=== PATIENT | female | born 1965 | race Caucasian/White ===

== ENCOUNTER 2025-06-11 12:54 | Outpatient (REF) | payer OTHER, SELFPAY ==
--- OUTSIDE RECORDS SUMMARY | 2025-06-11 13:06 | XMS_ITS | Clinical Summary ---
Author Organization [facility] Address [address] [place] [address] Care Team Providers Care Diet Supervisor Name Role Phone Desmond Velasquez MD Primary Care Provider + Allergies Active Allergy Reactions Criticality Noted Date Comments Penicillins Other (See Comments) 09/03/2018 Angioedema Medications cyclobenzaprine (FLEXERIL) 10 MG tablet TAKE 1 TABLET BY MOUTH EVERY DAY 06/15/2021 Active carbidopa-levod opa (SINEMET CR) 25-100 mg tablet Sinemet CR 25-100 MG Oral Tablet Extended Release 1 TAB PRN Refills: 0 Active Active Prempro 0.3-1.5 mg tablet 06/19/2021 Active FLUoxetine (PROzac) 40 MG capsule 07/05/2021 Active gabapentin (NEURONTIN) 300 MG capsule Take 300 mg by mouth. Active levothyroxine (SYNTHROID) 100 MCG tablet 06/24/2021 Active lorazepam (ATIVAN) 1 MG tablet Ativan 1 MG Oral Tablet 1 TAB PRN Refills: 0 Active Active methylphenidate HCl (RITALIN) 20 MG tablet 07/11/2021 Active naproxen (NAPROSYN) 500 MG tablet Take 500 mg by mouth 2 (two) times a day as needed. 03/08/2021 Active nitroglycerin (NITROSTAT) 0.[address] 0.3 mg under the tongue. 07/03/2019 Active omeprazole (PriLOSEC) 40 MG capsule PriLOSEC 40 MG CPDR TAKE 1 CAPSULE DAILY. Refills: 0 Active Active oxyCODONE (ROXICODONE) 10 MG tab Take 10 mg by mouth. 07/11/2021 Active prazosin (MINIPRESS) 2 MG capsule 09/01/2021 Active rizatriptan (MAXALT) 10 MG tablet Take 10 mg by mouth. 06/19/2021 Active SUMAtriptan (IMITREX) 100 MG tablet 06/16/2021 Active topiramate (TOPAMAX) 100 MG tablet 07/05/2021 Active topiramate (TOPAMAX) 200 MG tablet 08/07/2021 Active Immunizations Name Administration Dates Next Due Flucelvax Trivalent PFS IM; Without Preservative (18+ mos) 09/03/2018 Fluzone Trivalent Prefilled Syringe (18+ months) 09/05/2021 PPD Test 09/03/2018 Social History Tobacco Use Types Packs/Day Years Used Date Smoking Tobacco: Former Smokeless Tobacco: Never Comments No Sex and Gender Information Value Date Recorded Sex Assigned at Not on file Legal Sex Female 3:35 PM EDT Gender Identity Not on file Sexual Orientation Not on file Plan of Treatment Health Maintenance Due Date Last Done Comments Colorectal Cancer: COLONOSCO PY Screening every 10 yrs (or Modifier) 1966 Depression: Screening Annual ly using PHQ-2/9 in Adults 18 yrs or above (or HM Modifier)([facility]) 02/20/1984 Hepatitis C Virus Infection in Adolescents and Adults: Screening (or Modifier) ([facility]) 02/20/1984 STEFFI Screening: Once using ST [facility]BANG Questionnaire for Adults with Conditions or high BMI([facility]) 02/20/1984 SDOH Screening Reminder: Tarah baca for all adults ([facility]) 02/20/1984 Tobacco Smoking Cessation: i n Adults excluding Women: Behavioral and Pharmacotherapy Interventions ([facility]) 02/20/1984 DTaP/Tdap/Td Vaccines ([facility]) (1 - Tdap) 1985 Cervical Cancer Screenin 1-65 yrs of age (or Modifier) 1987 Cervical Cancer Screening: P ap every 3 yrs pts age 21-65 1987 Cervical Cancer: Pap Screeni ng with Modifier timing ([facility]) 1987 Cervical Cancer: hrHPV alone or with cotesting Pap for Pts 30-65yrs screening every 5yrs ([facility]) 1987 Colorectal Cancer Screening 45 -75 Yrs (or HM Modifier) 2011 Colorectal Cancer: FLEXIBLE SIGMOIDOSCOPY Screening every 5 yrs 2011 Colorectal Cancer: Fecal Imm unochemical Test (FIT) Annually [facility] 2011 Colorectal Cancer: High-sens itivity gFOBT Screening Annually [facility] 2011 Colorectal Cancer: Stool Col oguard Screening every 3 yrs 2011 Colorectal Cancer:CT Colonog elli Screening every 5 yrs 2011 Breast Cancer: Screening Tarah ually age 50-74 yrs (or HM Modifier)([facility]) 02/20/2016 Lung Cancer: Screening Annua lly in adults aged 50 to 80 years (or HM Modifiers)([facility]) 02/20/2016 Pneumococcal Vaccination Scr eening: Patients 50+ yrs of age ([facility]) (1 of 1 - PCV) 02/20/2016 Zoster/Shingles Vaccine Seri es Screening: Adults aged 18+ yrs (or HM Modifiers)([facility]) (1 of 2) 02/20/2016 COVID-19 Vaccine Screening: Initial Series and Booster Status ([facility]) (2023- season) 2024 Flu Vaccination: Yearly for ages 18mos through 64 years (or Modifier)([facility]) 06/19/2025 09/05/2021, 8 [employer] Not on file Insurance MEDICARE Care Teams Diet Supervisor Relationship Specialty Start Date End Date Desmond Velasquez MD [address] [place] [address] PCP - General Family Medicine 09/03/18
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
--- OUTSIDE RECORDS SUMMARY | 2025-06-11 13:06 | XMS_ITS | Encounter Summary ---
Author Organization [facility] Address [address] [place] [address] Care Team Providers Care Donor Services Technician Name Role Phone Desmond Velasquez Primary Care Provider [phone] Encounter Details Date Type Department Care Team (Late st Contact Info) Description 12/16/2021 Telephone [facility] [address] [place] [address] [phone] Telephone Intake, Staff Social History Tobacco Use Types Packs/Day Years Used Date Smoking Tobacco: Every Day Comments:: Comments Unknown Sex and Gender Information Value Date Recorded Sex Assigned at Not on file Legal Sex Female 12:05 AM EDT Gender Identity Not on file Sexual Orientation Not on file documented as of this encounter Miscellaneous Notes * Telephone Encounter - Sindhu Sow - 12/19/2021 11:34 AM EST Left a message to return our call to schedule * Telephone Encounter - Jayashree Arshad - 12/16/2021 1:31 PM EST Pt would like to reschedule three month f.u with rDu Silverman. Next available too far out. pls advice documented in this encounter Plan of Treatment Not on file documented as of this encounter Visit Diagnoses Not on filedocumented in this encounter Care Teams Donor Services Technician Relationship Specialty Start Date End Date Desmond Velasquez [address] [place] [id number] PCP - General 06/07/17 documented as of this encounter
== END 2025-06-11 12:55 | disposition home or self-care (01) ==
LOC: HO.SH 12:54
PROVIDERS: Visit Provider Internal Medicine
DX: Z01.118 Encounter for examination of ears and hearing with other abnormal findings (principal); H90.3 Sensorineural hearing loss, bilateral; H93.13 Tinnitus, bilateral
CPT/HCPCS: 92557; 92567